=== PATIENT | male | born 1975 | race Caucasian/White ===

== ENCOUNTER 2021-01-13 16:23 | Inpatient (IN) | payer MEDICARE, OTHER ==
[~2021-01-13] VITALS: Ht 182.9 cm; Wt 117.9 kg
[2021-01-13 17:07] LABS: HEMOGLOBIN 16.1 gm/dl (14.0-17.5); RED BLOOD COUNT 4.61 M/UL (4.20-5.50); WHITE BLOOD COUNT 18.3 K/UL (4.5-11.0)
[2021-01-13 17:39] LABS: BUN/CREATININE RATIO 13 (0-10)
[2021-01-14 01:48] LABS: HEMOGLOBIN 15.6 gm/dl (14.0-17.5); RED BLOOD COUNT 4.47 M/UL (4.20-5.50); WHITE BLOOD COUNT 18.4 K/UL (4.5-11.0)
[2021-01-14] MEDS ORDERED: GABAPENTIN300 MG PO (10:09)
[2021-01-14] MEDS ORDERED: HYDROCODON-ACE1 EAC6 PO (10:10)
[2021-01-14] MEDS ORDERED: CYCLOBENZAPRINE10 MG PO (10:12)
[2021-01-14] MEDS ORDERED: HYDROCHLOROTHIA25 MG PO (10:13)
[2021-01-14] MEDS ORDERED: MECLIZINE HCL25 MG PO (10:14)
[2021-01-14] MEDS ORDERED: LISINOPRIL10 MG PO (10:14)
[2021-01-14] MEDS ORDERED: LOPRESSOR 50 MG50 MG PO (10:15)
[2021-01-14] MEDS ORDERED: PROTONIX 40 MG40 M1 PO (10:16)
[2021-01-14] MEDS ORDERED: HEPARIN SO5000 UNIT2 IVP (13:40)
--- NOTE | 2021-01-15 00:10 | NUR ---
PATIENT LEFT FLOOR AT 2330 VIA EMS TO ARRIVE AT [facility]. REPORT HAS BEEN CALLED AND THEY'RE AWARE THAT HE IS ON THE WAY. FAMILY WAS CALLED BY THE PATIENT TO MAKE AWARENESS TO TRANSFER. TR BAND WAS OFF FROM HEART CATH. VITALS WERE BP: 134/85, HR: 73, RR12, T:98.0 AT THE TIME OF TRANSFER
== END 2021-01-14 23:30 | disposition critical access hospital (66) | DRG 281 ==
LOC: ER1 16:23 → PROG CARE 20:21 → CDU 20:21 → PROG CARE 01-14 08:51
PROVIDERS: Emergency Medicine; ADMIT Internal Medicine
PROC: B24BZZ4 Ultrasonography of Heart with Aorta, Transesophageal (ICD-10-PCS; principal; 2021-01-14)
PROC: 4A023N7 Measurement of Cardiac Sampling and Pressure, Left Heart, Percutaneous Approach (ICD-10-PCS; 2021-01-14)
PROC: B2111ZZ Fluoroscopy of Multiple Coronary Arteries using Low Osmolar Contrast (ICD-10-PCS; 2021-01-14)
PROC: B2151ZZ Fluoroscopy of Left Heart using Low Osmolar Contrast (ICD-10-PCS; 2021-01-14)
DX: I21.4 Non-ST elevation (NSTEMI) myocardial infarction (principal); C81.90 Hodgkin lymphoma, unspecified, unspecified site; E78.5 Hyperlipidemia, unspecified; Z20.822 Contact with and (suspected) exposure to COVID-19; I10 Essential (primary) hypertension; F17.210 Nicotine dependence, cigarettes, uncomplicated; M51.36 Other intervertebral disc degeneration, lumbar region; Z90.81 Acquired absence of spleen; Z90.49 Acquired absence of other specified parts of digestive tract; Z88.1 Allergy status to other antibiotic agents; Z88.8 Allergy status to other drugs, medicaments and biological substances; Z82.49 Family history of ischemic heart disease and other diseases of the circulatory system; Z79.82 Long term (current) use of aspirin
CPT/HCPCS: ECHO; 71045; 80053; 80061; 82550; 82553; 83036; 83874; 84484; 85025; 85610; 85730; 93005; 93306; 99152; 99153; 99285; C1769; C1894; G0378; J1644; J2250; J3010; J7040; Q9967; U0002

== ENCOUNTER → 2021-03-10 | Outpatient (CLI) | payer MEDICARE, OTHER ==
[~2021-03-10] MED LIST: CYCLOBENZAPRINE10 MG PO; GABAPENTIN300 MG PO; HEPARIN SO5000 UNIT2 IVP; HYDROCHLOROTHIA25 MG PO; HYDROCODON-ACE1 EAC6 PO; LISINOPRIL10 MG PO; LOPRESSOR 50 MG50 MG PO; MECLIZINE HCL25 MG PO; PROTONIX 40 MG40 M1 PO
== END ==
LOC: RAD 16:04
DX: Z00.00 Encounter for general adult medical examination without abnormal findings (principal)
CPT/HCPCS: 71046